=== PATIENT | female | born 1950 | race Caucasian/White ===

== ENCOUNTER 2019-05-29 15:17 | Emergency (ER) | payer SELFPAY ==
[~2019-05-29] VITALS: Ht 152.4 cm; Wt 68.0 kg
[2019-05-29] MEDS ORDERED: NITROGLYCERIN 0.4MG TABLET SL SL PRN (18:00)
[2019-05-29] MEDS ORDERED: ASPIRIN 81MG TABLET PO ONE (18:00)
[2019-05-29] MEDS ORDERED: ACETAMINOPHEN 500MG TABLET PO ONE (18:00)
[2019-05-29] MEDS ORDERED: METHOCARBAMOL 500MG TABLET PO ONE (18:30)
[2019-05-29 18:42] LABS: BASOPHILS % 0.8 % (0.0-2.0); EOSINOPHILS % 1.9 % (0.0-5.0); HEMATOCRIT. 41.6 % (36.0-48.0); HEMOGLOBIN. 13.8 g/dL (12.0-16.0); LYMPHOCYTES % 31.2 % (20.0-50.0); MEAN CORPUSCULAR HEMOGLOBIN 29.6 pg (28.0-32.0); MEAN CORPUSCULAR VOLUME 89.1 fL (81.0-99.0); MEAN PLATELET VOLUME 10.3 fl (7.4-10.4); MONOCYTES % 4.7 % (2.0-8.0); NEUTROPHILS % 61.4 % (40.0-76.0); PLATELET 211 x1000/uL (130-400); RED BLOOD CELL COUNT 4.67 mill/uL (4.2-5.4); RED CELL DISTRIBUTION WIDTH 13.1 % (11.6-14.6)
[2019-05-29 18:44] LABS: CHLORIDE 106 mEq/L (98-107)
[2019-05-29 18:47] LABS: PARTIAL THROMBOPLASTIN TIME 27.5 sec (23.4-31.0)
[2019-05-29 19:46] VITALS: BP 168/80
== END 2019-05-29 20:08 | disposition home or self-care (01) ==
LOC: ER 15:17 → CANBEDREQ 05-30 02:33
DX: R07.89 Other chest pain (principal); F17.200 Nicotine dependence, unspecified, uncomplicated; I10 Essential (primary) hypertension
CPT/HCPCS: 36415; 71045; 80053; 83880; 84484; 85025; 85610; 85730; 99284; Z7610